=== PATIENT | female | born 1985 | race Asian ===

== ENCOUNTER 2017-10-09 06:41 | Day surgery (SDC) | payer OTHER ==
[2017-10-06 14:20] VITALS: BMI 25.7
[2017-10-09] MEDS ORDERED: PROPOFOL 20 ML ONE ×2 (08:20)
[2017-10-09 09:10] VITALS: TEMP 97.8
[2017-10-09 10:29] VITALS: BP 123/65; PULSE 52
--- NOTE | 2017-10-10 15:38 | PATH ---
Surgical Pathology Report Patient Name: TUTU HOLCOMB [facility]. Rec. #: [id number] /Age/Gender: 1985 (Age: 32) / F Account: [id number] [facility] Taken: 10/09/2017 Received: 10/09/2017 Reported: 10/10/2017 Physicians: Sonia Lazaro M.D. Specimen(s) Received A: BX 2ND PORTION DUODENUM AND BULB B: BX ANTRUM Clinical History Abdominal pain Final Diagnosis A. SECOND PORTION DUODENUM AND BULB, BIOPSY: DUODENAL MUCOSA WITH CHRONIC DUODENITIS. B. ANTRUM, BIOPSY: GASTRIC MUCOSA WITH NO DIAGNOSTIC ABNORMALITIES. IMMUNOSTAIN IS NEGATIVE FOR H. PYLORI ORGANISMS. Electronically Signed Ave Flowers M.D. Gross Description A. Received in formalin, labeled "biopsy second portion duodenum and bulb" are 3 antony, irregular portions of soft tissue measuring 0.5 cm. in greatest dimension. The specimens are submitted in toto in one cassette. B. Received in formalin, labeled "biopsy antrum" are 4 antony, irregular portions of soft tissue measuring 0.4 cm. in greatest dimension. The specimens are submitted in toto in one cassette. __ KWRobe/10/09/2017 david/10/09/2017
== END 2017-10-09 10:00 | disposition home or self-care (01) ==
LOC: JASU-ENDO 06:41
PROVIDERS: ATTEND Internal Medicine Gastroenterology
PROC: 0DB68ZX Excision of Stomach, Via Natural or Artificial Opening Endoscopic, Diagnostic (ICD-10-PCS; 2017-10-09)
PROC: 0DB98ZX Excision of Duodenum, Via Natural or Artificial Opening Endoscopic, Diagnostic (ICD-10-PCS; principal; 2017-10-09 08:30)
DX: K21.0 Gastro-esophageal reflux disease with esophagitis (principal)
CPT/HCPCS: 84703; 88305-TC; 88342-TC

== ENCOUNTER 2017-10-27 06:25 | Day surgery (SDC) | payer OTHER ==
--- NOTE | 2017-10-17 15:45 | PREOP ---
DATE OF ADMISSION: 10/27/2017 HISTORY: A 32-year-old woman who over the course of the past several weeks has presented with intermittent epigastric pain radiating to her right upper quadrant. This has been rather severe at times. She was seen and worked up by the GI service. Abdominal ultrasound completed, August 06, 2017, demonstrated cholelithiasis. There was also an incidental small polyp measuring 4.5 mm in size noted as well. There was no evidence to suggest acute cholecystitis. Patient had also undergone an MRCP recently on September 11, 2017, where she was found to have, again, evidence of cholelithiasis but no evidence of cholecystitis. There was no choledocholithiasis or pancreatic duct dilatation noted. Close questioning, she is not certain whether fatty foods actually have lead to her symptoms. She has had no unintentional weight loss. There is no family history for gallbladder disease. PAST MEDICAL HISTORY: Patient's past medical history is significant for GERD. No history of heart disease, hypertension, diabetes, respiratory, or renal or hepatic insufficiency. PAST SURGICAL HISTORY: Nil. ALLERGIES: None known. CURRENT MEDICATIONS: Pantoprazole for GERD. SOCIAL HISTORY: Negative tobacco. Negative alcohol. FAMILY HISTORY: Father with history of gout. Mother and 1 sibling history of hepatitis B. REVIEW OF SYSTEMS: Significant only for her GERD and her recent upper endoscopy completed on the of last month which the patient states demonstrated some evidence of reflux but with no untoward findings. PHYSICAL EXAMINATION: Abdomen: Soft, nontender, with no palpable abnormality. Request made by GI service for liver biopsy at the time of laparoscopic cholescystectomy. Patient with a history of apparently of hepatitis B. On ultrasound,she had a slightly dense, coarse liver. GI service thought it would be beneficial to sample the liver at the time of laparoscopic gallbladder surgery. IMPRESSION: Chronic cholecystitis/cholelithiasis. PLAN: Laparoscopic cholecystectomy/possible open cholecystectomy. Indications, alternatives, possible complications were reviewed and consent obtained. LEOBARDO BOWSER M.D. [id number]
[2017-10-19 11:10] VITALS: BMI 25.6
[2017-10-27] MEDS ORDERED: MIDAZOLAM HCL 2 MG/2 ML SINGLE DOSE VIAL ONE (07:41)
[2017-10-27] MEDS ORDERED: ROCURONIUM BROMIDE 50 MG/5 ML VIAL ONE (08:06)
[2017-10-27] MEDS ORDERED: PROPOFOL 20 ML ONE ×3 (08:06→08:23)
[2017-10-27] MEDS ORDERED: SUCCINYLCHOLINE CHLORIDE 200 MG/10 ML VIAL ONE (08:06)
[2017-10-27] MEDS ORDERED: LIDOCAINE HCL/PF 2% SDV 5ML VIAL ONE (08:12)
[2017-10-27] MEDS ORDERED: DEXAMETHASONE SOD PHOSPHATE 4 MG/1 ML VIAL ONE ×2 (08:12→09:05)
[2017-10-27] MEDS ORDERED: ONDANSETRON 4 MG/2 ML VIAL ONE ×2 (08:12→09:05)
[2017-10-27] MEDS ORDERED: ceFAZolin SODIUM 1 GM VIAL ONE (08:20)
[2017-10-27] MEDS ORDERED: NEOSTIGMINE METHYLSULFATE 0.5 MG/ML - 10 ML MDV ONE (08:49)
[2017-10-27] MEDS ORDERED: GLYCOPYRROLATE 0.2 MG/1 ML VIAL ONE (08:49)
[2017-10-27] MEDS ORDERED: ACETAMINOPHEN 1000 MG/100 ML VIAL (NON FORMULARY) IVPB ONE (09:40)
[2017-10-27] MEDS ORDERED: ACETAMINOPHEN INJECTION 100 ML IVPB ONE (09:43)
[2017-10-27] MEDS ORDERED: oxyCODONE HCL 5 MG TABLET PO PRN (10:12)
[2017-10-27] MEDS ORDERED: ONDANSETRON 4 MG/2 ML VIAL IVPUSH PRN (10:14)
[2017-10-27] MEDS ORDERED: D5-1/2NS+20 MEQ KCL - 20 MEQ/1,000 ML INFUS.BAG IV SCH (10:15)
[2017-10-27] MEDS ORDERED: ACETAMINOPHEN 325 MG TABLET (FP) PO PRN (10:15)
[2017-10-27] MEDS: KETOROLAC TROMETHAMINE 30 MG/1 ML VIAL ONE ×2 (10:20→10:55)
[2017-10-27] MEDS ORDERED: LACTATED RINGERS SOLUTION 1,000 ML IV SCH (14:15)
[2017-10-27] MEDS: FAMOTIDINE 20 MG TABLET PO SCH (21:33)
--- NOTE | 2017-10-28 07:27 | OP ---
DATE OF OPERATION: 10/27/2017 PREOPERATIVE DIAGNOSIS: Chronic cholecystitis/cholelithiasis/dense liver with history of hepatitis B. POSTOPERATIVE DIAGNOSIS: Chronic cholecystitis/cholelithiasis/dense liver with history of hepatitis B. PROCEDURE: Laparoscopic cholecystectomy/laparoscopic wedge right liver biopsy. OPERATING SURGEON: Noe Wiley MD SALES CENTER MANAGER: Tristan Solorio MD ANESTHESIA: Cata Rodas MD (general) HISTORY: This is a 32-year-old woman who presents for laparoscopic removal of her gallbladder as management of chronic cholecystitis and cholelithiasis. Patient also with a history of hepatitis B. Dense liver. Request made by medical service for liver biopsy at the time of laparoscopic cholecystectomy. Indications, alternatives, and possible complications reviewed. Consent was obtained. DESCRIPTION OF PROCEDURE: With the patient in the supine position and after general anesthesia, the abdomen was prepped and draped in sterile fashion using chlorhexidine. A small incision was made in the infraumbilical region through which a Veress needle was placed into the abdominal cavity. Abdominal cavity was insufflated to an adequate pressure and volume using CO2 gas. The Veress needle was removed. An 11-mm trocar port was placed through the infraumbilical wound. The camera lens was passed through this port, and intraabdominal cavity visualized. Under direct vision, two 5-mm right anterolateral ports were placed in which clamps were passed to maintain traction on the gallbladder and aid in retraction. An 11-mm port was placed in the epigastrium through which the operating instruments were passed. A limited exploration of the abdomen revealed multiple adhesions about the gallbladder. The liver itself appeared grossly normal. No other significant findings encountered on limited laparoscopy. Through the two 5-mm ports that were placed in the upper outer right abdomen, clamps were passed to maintain traction and aid in the dissection. Through the 11-mm epigastric port, the operating instruments were passed. The adhesions were taken down under direct vision exposing the entire gallbladder and hepatoduodenal ligament. The peritoneum and hepatoduodenal ligament were incised. The cystic duct was identified. The cystic duct/bile duct junction was noted. The cystic duct was clipped proximally and distally and divided. The adjacent artery managed similarly. The gallbladder was then removed from the gallbladder bed, lysing its attachments using the electrocautery. It was ultimately freed. The right upper quadrant was irrigated. The irrigant retrieved. Adequate hemostasis ensured. Now directing our attention to the anterior edge of the right live, using scissors, a wedge of liver was secured as a wedge liver biopsy. The area was cauterized, and adequate hemostasis ensured. Ultimately, all ports removed under direct vision. No bleeding identified. The gallbladder was passed through the umbilical port and delivered without difficulty. The liver specimen had been retrieved previously. The pneumoperitoneum was allowed to escape. The fascia at the umbilicus was approximated with interrupted 0 Vicryl sutures. All four skin wounds were closed with subcuticular 4-0 Biosyn sutures. NEEDLE, SPONGE AND INSTRUMENT COUNTS: Correct. ESTIMATED BLOOD LOSS: Minimal. SPECIMENS: Gallbladder/wedge right liver biopsy. DRAINS: None. Patient tolerated the procedure. The procedure was terminated. Leighann [id number] MTDD
[2017-10-28] MEDS: FAMOTIDINE 20 MG TABLET PO SCH (09:35)
[2017-10-28] MEDS ORDERED: ENOXAPARIN NA (PORCINE) 40 MG/0.4 ML DISP.SYRIN SQ SCH (10:00)
[2017-10-28 10:09] VITALS: BP 121/61; PULSE 54; TEMP 98.4
--- NOTE | 2017-11-06 14:25 | PATH ---
Surgical Pathology Report Patient Name: TUTU HOLCOMB [facility]. Rec. #: [id number] /Age/Gender: 1985 (Age: 32) / F Account: [id number] Location: [facility] Taken: 10/27/2017 Received: 10/27/2017 Reported: 11/06/2017 Physicians: Noe Wiley M.D. Specimen(s) Received A: RIGHT LIVER BIOPSY WEDGE B: GALLBLADDER Clinical History Chronic cholecystitis Final Diagnosis A. LIVER, RIGHT LOBE, WEDGE BIOPSY: SUBCAPSULAR HEPATIC PARENCHYMA WITH MILD STEATOHEPATITIS INCLUDING DIFFUSE STEATOSIS (70%), FOCAL PERICELLULAR INFLAMMATION, AND BALLOONING DEGENERATION OF HEPATOCYTES, SEE COMMENT. MINIMAL CHRONIC INACTIVE HEPATITIS CONSISTENT WITH HISTORY OF HEPATITIS B INFECTION. TRICHROME STAIN HIGHLIGHTS THE CAPSULE AND SHOWS PATCHY PERICELLULAR FIBROSIS (STEATOFIBROSIS). RETICULIN STAIN SHOWS AN INTACT SINUSOIDAL ARCHITECTURE. IRON STAIN IS NEGATIVE FOR SIDEROSIS. PAS/PAS WITH DIASTASE STAINS ARE NEGATIVE FOR [id number] GLOBULES. NEGATIVE FOR CHOLESTASIS, CHOLANGITIS/BILE DUCT INJURY, GRANULOMAS, OR MALIGNANCY. Comment: Steatohepatitis may be associated with diabetes mellitus, metabolic syndrome, obesity, medications, alcohol use, etc. Clinical correlation recommended. Case sent for consultation to Dr. Renuka Ramos from [place], [place] ( the diagnosis above reflects her opinion. B. GALLBLADDER, CHOLECYSTECTOMY: CHRONIC CHOLECYSTITIS AND CHOLELITHIASIS. Electronically Signed Ave Flowers M.D. Gross Description A. Received in formalin labeled "right liver biopsy wedge," is a 1.0 x 0.5 x 0.2 cm portion of antony soft tissue, consistent with a liver biopsy. The specimen is submitted in toto in one cassette. B. Received in formalin, labeled "gallbladder," is a 7.5 x 2.8 x 2.5 cm. gallbladder with a 0.2 cm. in length portion of cystic duct attached. The outer surface is antony-jarrett and varies from smooth to shaggy. The lumen contains antony, tenacious bile as well as a single 0.8 cm in diameter brown, spherical cholelith. The mucosa is antony with gold cholesterol stippling. The wall of the gallbladder averages 0.1 cm. in thickness. Utilization Specialist sections are submitted in one cassette. 10/27/2017 [facility]10/27/2017
== END 2017-10-28 10:30 | disposition home or self-care (01) ==
LOC: FASU 06:25 → FM/S 06:25 → FASUSAT 10-28 10:30
PROVIDERS: ATTEND Surgery
PROC: 0FT44ZZ Resection of Gallbladder, Percutaneous Endoscopic Approach (ICD-10-PCS; principal; 2017-10-27 08:27)
PROC: 0FB14ZX Excision of Right Lobe Liver, Percutaneous Endoscopic Approach, Diagnostic (ICD-10-PCS; 2017-10-27 08:27)
DX: K80.10 Calculus of gallbladder with chronic cholecystitis without obstruction (principal); K76.89 Other specified diseases of liver; Z86.19 Personal history of other infectious and parasitic diseases
CPT/HCPCS: 84703; 88304-TC; 88305-TC; 88313-TC; 94760; J0131